=== PATIENT | male | born 1940 | race Caucasian/White ===

== ENCOUNTER 2018-11-20 15:50 | Observation (INO) | payer MEDICARE, BC ==
[~2018-11-20] VITALS: Ht 182.9 cm; Wt 98.8 kg
[2018-11-20] VITALS (10 sets, daily range): BP systolic 127–137; BP diastolic 63–78; PULSE 64–85; TEMP 97.6–98.6
--- NOTE | 2018-11-20 16:20 | NUR ---
arrived on unit per WC, assisted out of bed and into gown and then into bed, soriano catheter patent draining purplish red urine but it is flowing, CO some bladder spasms but states it is better after he is up and into bed,
--- NOTE | 2018-11-20 16:30 | NUR ---
admission assessment completed, see intervention for further info, Dr Woodall in to visit with patient and his ,
[2018-11-20] MEDS ORDERED: GLUCOSAMINE & C1 TAB PO (16:32)
[2018-11-20] MEDS ORDERED: COLACE 100100 MG/CAP PO (16:33)
--- NOTE | 2018-11-20 17:00 | NUR ---
consent signed, IV fluids started, to surgery per bed
--- NOTE | 2018-11-20 17:06 | NUR ---
to surgery per bed
--- NOTE | 2018-11-20 18:43 | NUR ---
bedside shift report given to LAURA Bryant
--- NOTE | 2018-11-20 19:00 | NUR ---
TO ROOM 322 VIA BED FROM PACU. REPORT RECEIVED. ASSUMED CARE. ASSESSMENT COMPLETE. CBI RUNNING AT A MODERATE RATE-CLEAR LIGHT YELLOW URINE TO DEPENDENT DRAINAGE BAG. DENIES PAIN. VS STABLE. FAMILY AT BEDSIDE. TOLERATED CLEAR FLUIDS-REQUESTING SOLID-SANDWICH BOX PROVIDED. TOLERATED WELL EATING 100%. UP TO BATHROOM FOR BOWEL MOVEMENT. ORIENTED TO ROOM. DENIES QUESTIONS OR CONCERNS. WILL MONITOR.
[2018-11-21] VITALS: BP 109/62; PULSE 70; TEMP 98.8
[2018-11-21 03:23] VITALS: BP 118/63; PULSE 81; TEMP 98.4
--- NOTE | 2018-11-21 05:46 | NUR ---
RESTED SOME THROUGH THE NIGHT. DENIES PAIN. CBI HAS BEEN FLOWING AT A SLOW RATE-URINE HAS BEEN CLEAR TO LIGHT PINK FOR ENTIRE SHIFT. DENIES QUESTIONS OR CONCERNS. WILL MONITOR.
--- NOTE | 2018-11-21 07:15 | NUR ---
REPORT TO LAURA PICKERING
[2018-11-21 07:20] VITALS: BP 136/74; PULSE 74; TEMP 98.7
--- NOTE | 2018-11-21 08:39 | NUR ---
Patient sitting up in chair, eating breakfast. His at bedside. Dr. Woodall rounded this am. Orders obtained. Anaya primed & pulled. Voided a few drops of urine. Encouraged po intake. Will monitor voiding trial closely. Int Dc per patient request.
--- NOTE | 2018-11-21 10:15 | NUR ---
Patient has voided x2. No difficulty. [place] tinged.
--- NOTE | 2018-11-21 11:58 | NUR ---
Patient has completed his voiding trial. Urine pale yellow. He is having some incontience, urgency & frequency. Reviewed with patient this is normal. notified & discharge orders obtained. Reviewed all discharge paperwork with patient & his . They verbalized understanding. They will make follow up appt for outpatient clinic to see . I was unable to make this appt, [facility] phone line down. Patient and his deny questions or concerns. Patient wheeled out with all belongings.
--- NOTE | 2018-11-21 12:16 | NUR ---
First visit from the master yacht. No needs right now.
== END 2018-11-21 12:02 | disposition home or self-care (01) ==
LOC: SURG 15:50 → MEDICAL 15:50 → SURG 15:50
PROVIDERS: ADMIT Urology
DX: R31.0 Gross hematuria (principal); R33.8 Other retention of urine; Z85.46 Personal history of malignant neoplasm of prostate
CPT/HCPCS: G0378; G0379; J0690; J2704; J3010; J7030

== ENCOUNTER → 2020-02-19 | Outpatient (CLI) | payer MEDICARE, BC ==
[~2020-02-19] MED LIST: COLACE 100100 MG/CAP PO; GLUCOSAMINE & C1 TAB PO
== END ==
LOC: COL.RAD 13:00
DX: M25.571 Pain in right ankle and joints of right foot (principal); M25.572 Pain in left ankle and joints of left foot
CPT/HCPCS: J3301; Q9967

== ENCOUNTER → 2020-09-26 | Outpatient (CLI) | payer MEDICARE, BC | LOC: COL.RAD 13:00 | DX: M19.072 Primary osteoarthritis, left ankle and foot (principal); M19.071 Primary osteoarthritis, right ankle and foot | CPT/HCPCS: J3301; Q9967 ==

== ENCOUNTER → 2021-03-24 | Outpatient (CLI) | payer MEDICARE, BC | LOC: COL.RAD 12:51 | DX: M19.072 Primary osteoarthritis, left ankle and foot (principal); M19.071 Primary osteoarthritis, right ankle and foot | CPT/HCPCS: J3301; Q9967 ==